=== PATIENT | male | born 1960 | race Caucasian/White ===

== ENCOUNTER → 2017-07-09 | Outpatient (CLI) | payer OTHER ==
--- NOTE | 2017-07-11 08:37 | RADIOLOGY REPORT (SQ) ---
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 TECHNIQUE: Blood glucose level was verified. Above dose of FDG was injected intravenously. 2-D seg mented attenuation correction images were obtained from the base of the skull to the midthighs. Nonc ontrast CT images were obtained for attenuation correction and fusion with emission images. CT image s were performed without oral or intravenous contrast and are not sensitive for parenchymal lesions. A series of overlapping emission PET images were obtained. Images reviewed and manipulated at [facility] work station by the radiologist. Images stored on PACS. LIMITATIONS: None. FINDINGS: HEAD AND NECK: No areas of abnormal metabolic activity in the soft tissues of the head and neck. CHEST: No areas of abnormal metabolic activity in the chest. ABDOMEN AND PELVIS: Patient has a history of GIST. There are anastomotic bethany in the right abdome n at about the level of the umbilicus. Small bowel anastomotic bethany are present. On the diffusio n images, there is a nondilated small bowel loop without gross wall thickening, at the level of the u mbilicus to the right, with SUV of 4.5. No adjacent soft tissue nodules are identified by PET-CT. R ecommend comparison with CT images from 07/03/2017. There are 2 tiny subcentimeter nodules along the dorsal aspect of the cecum which are non metabolic. These are less than 5 mm in size. The 1.7 cm aortocaval lymph node described on 07/03/2017 is not identified by PET-CT. Again, direct c omparison with CT images with 07/03/2017 is recommended. PROXIMAL LOWER EXTREMITIES: No areas of abnormal metabolic activity in the soft tissues of the lower extremities. BONES: No abnormal metabolic activity in the visualized skeleton. ADDITIONAL CT FINDINGS: Cervical and lumbar fusion. Appendix not identified. Tiny less than 5 mm no ncalcified granulomas in the bilateral upper lobes and minor fissure. OTHER: Liver background activity 1.9 SUV. Blood pool background activity 1.4 SUV IMPRESSION: Increased SUV along right-sided small bowel loops adjacent to surgical anastomotic clips . No discrete soft tissue mass is identified. Recommend direct comparison with the outside CT chest abdomen pelvis 07/03/2017. No other worrisome increased metabolic activity from the skull base to the midthighs TECHNICAL DOCUMENTATION: JOB ID: [id number] [employer]- All Rights Reserved
== END ==
LOC: RAD 17:05
PROVIDERS: ATTEND Internal Medicine
DX: D37.9 Neoplasm of uncertain behavior of digestive organ, unspecified (principal)
CPT/HCPCS: 78815; A9552